=== PATIENT | female | born 1990 | race Hispanic/Latino ===

== ENCOUNTER 2018-05-06 11:55 | Emergency (ER) | payer OTHER ==
[2018-05-06 13:27] LABS: BASOPHILS % (AUTO) 0.4 % (0.0-5.0); EOSINOPHILS % (AUTO) 0.6 % (0.0-8.0); HEMATOCRIT 38.7 % (36-48); LYMPHOCYTES % (AUTO) 13.6 % (21.0-51.0); MEAN CORPUSCULAR HEMOGLOBIN 29.6 pg (27.0-33.0); MEAN CORPUSCULAR HGB CONC 33.2 g/dL (32.0-36.0); MEAN CORPUSCULAR VOLUME 89.2 fL (79-99); MONOCYTES % (AUTO) 4.9 % (3.0-13.0); NEUTROPHILS % (AUTO) 80.5 % (40.0-77.0); PLATELET COUNT (AUTO) 303 K/uL (130-400); RED BLOOD CELL COUNT(AUTO) 4.34 MIL/uL (4.00-5.50); RED CELL DISTRIBUTION WIDTH 13.8 % (11.0-15.5); WHITE BLOOD COUNT (AUTO) 11.7 K/uL (4.8-10.8)
[2018-05-06 13:30] LABS: CREATININE 0.8 mg/dL (0.5-1.5)
[2018-05-06 13:36] LABS: APPEARANCE,URINE Clear (CLEAR); BILIRUBIN,URINE Negative (NEGATIVE); COLOR,URINE Yellow (YELLOW); GLUCOSE, URINE (UA) Negative (NEGATIVE); KETONES,URINE 40 mg/dL (NEGATIVE); LEUKOCYTE ESTERASE ,URINE Negative (NEGATIVE); NITRATE,URINE Negative (NEGATIVE); OCCULT BLOOD,URINE Negative (NEGATIVE); PROTEIN,URINE Negative (NEGATIVE); UROBILINOGEN,URINE 0.2 mg/dL (0.2-1.0)
[2018-05-06 13:38] LABS: HCG,QUAL RESULT NEGATIVE (NEGATIVE)
[2018-05-06 13:42] LABS: BACTERIA,URINE Rare /HPF (None Seen); RBC,URINE None Seen /HPF (0-1); SQUAMOUS EPITHELIAL CELL,UR Rare /HPF (0-2); WBC,URINE 0-1 /HPF (0-1)
[2018-05-06] MEDS ORDERED: ACETAMINOPHEN 325 MG TAB ONE (13:54)
== END 2018-05-06 14:06 | disposition home or self-care (01) ==
LOC: EDH 11:55
DX: D25.9 Leiomyoma of uterus, unspecified (principal); Z88.6 Allergy status to analgesic agent
CPT/HCPCS: 36415; 76856; 80048; 81001; 81025; 85025; 87486; 87797

== ENCOUNTER 2019-06-11 18:16 | Observation (INO) | payer MEDICAID ==
[2019-06-11 19:03] LABS: BILIRUBIN,URINE Negative (NEGATIVE); COLOR,URINE Yellow (YELLOW); GLUCOSE, URINE (UA) Negative (NEGATIVE); KETONES,URINE Trace mg/dL (NEGATIVE); LEUKOCYTE ESTERASE ,URINE Small (NEGATIVE); NITRATE,URINE Negative (NEGATIVE); OCCULT BLOOD,URINE Negative (NEGATIVE); PH,URINE 7.5 (5.0-8.0); PROTEIN,URINE Negative (NEGATIVE); UROBILINOGEN,URINE 0.2 mg/dL (0.2-1.0)
[2019-06-11 19:07] LABS: APPEARANCE,URINE CLOUDY (CLEAR)
[2019-06-11 19:11] LABS: AMPHET/METH SCREEN,URINE NEGATIVE (NEGATIVE); BARBITURATE SCREEN, URINE NEGATIVE (NEGATIVE); BENZODIAZEPINES SCREEN,URINE NEGATIVE (NEGATIVE); CANNABINOID SCREEN,URINE NEGATIVE (NEGATIVE); COCAINE SCREEN,URINE NEGATIVE (NEGATIVE); OPIATE SCREEN,URINE NEGATIVE (NEGATIVE); PHENCYCLIDINE SCREEN,URINE NEGATIVE (NEGATIVE)
[2019-06-11 19:26] LABS: AMORPHOUS SEDIMENT,UR Many /LPF (None Seen); BACTERIA,URINE Few /HPF (None Seen); RBC,URINE None Seen /HPF (0-1)
== END 2019-06-11 20:15 | disposition home or self-care (01) ==
LOC: EDH 18:16 → LDH 18:27
DX: O26.893 Other specified pregnancy related conditions, third trimester (principal); R10.9 Unspecified abdominal pain; M54.9 Dorsalgia, unspecified; Z3A.32 32 weeks gestation of pregnancy
CPT/HCPCS: 80305; 81001; 99284; G0378 ×2

== ENCOUNTER 2020-03-24 15:00 | Emergency (ER) | payer MEDICAID ==
[2020-03-24 15:28] LABS: APPEARANCE,URINE CLEAR (CLEAR); BILIRUBIN,URINE NEGATIVE (NEGATIVE); COLOR,URINE YELLOW (YELLOW); GLUCOSE, URINE (UA) NEGATIVE (NEGATIVE); KETONES,URINE NEGATIVE (NEGATIVE); LEUKOCYTE ESTERASE ,URINE NEGATIVE (NEGATIVE); NITRATE,URINE NEGATIVE (NEGATIVE); OCCULT BLOOD,URINE NEGATIVE (NEGATIVE); PH,URINE 7.5 (5.0-8.0); PROTEIN,URINE NEGATIVE (NEGATIVE); UROBILINOGEN,URINE 0.2 mg/dL (0.2-1.0)
[2020-03-24] MEDS ORDERED: 0.9%NACL 1000ML 1,000 ML IV ONE (15:36)
[2020-03-24] MEDS ORDERED: 0.9%NACL 50ML 50 ML IV ONE (15:36)
[2020-03-24 15:45] LABS: BASOPHILS % (AUTO) 0.5 % (0.0-5.0); EOSINOPHILS % (AUTO) 2.8 % (0.0-8.0); HEMATOCRIT 36.3 % (36-48); LYMPHOCYTES % (AUTO) 25.7 % (21.0-51.0); MEAN CORPUSCULAR HEMOGLOBIN 28.8 pg (27.0-33.0); MEAN CORPUSCULAR HGB CONC 33.6 g/dL (32.0-36.0); MEAN CORPUSCULAR VOLUME 85.8 fL (79-99); MONOCYTES % (AUTO) 8.4 % (3.0-13.0); NEUTROPHILS % (AUTO) 62.4 % (40.0-77.0); PLATELET COUNT (AUTO) 258 K/uL (130-400); RED BLOOD CELL COUNT(AUTO) 4.23 MIL/uL (4.00-5.50); RED CELL DISTRIBUTION WIDTH 14.6 % (11.0-15.5); WHITE BLOOD COUNT (AUTO) 8.7 K/uL (4.8-10.8)
[2020-03-24 15:51] LABS: CREATININE 0.5 mg/dL (0.5-1.5); POTASSIUM 4.2 mmol/L (3.5-5.1)
[2020-03-24 16:21] LABS: BILIRUBIN,TOTAL 0.1 mg/dL (0.2-1.0)
== END 2020-03-24 17:11 | disposition home or self-care (01) ==
LOC: EDH 15:00
DX: O26.892 Other specified pregnancy related conditions, second trimester (principal); G44.209 Tension-type headache, unspecified, not intractable; R11.0 Nausea; Z3A.14 14 weeks gestation of pregnancy
CPT/HCPCS: 36415; 80053; 81003; 84702; 85025; 96365; 99284; J7030

== ENCOUNTER 2020-06-09 17:23 | Observation (INO) | payer MEDICAID ==
[~2020-06-09] VITALS: Ht 157.5 cm; Wt 86.6 kg
[2020-06-09 18:10] LABS: APPEARANCE,URINE SL CLOUDY (CLEAR); BILIRUBIN,URINE NEGATIVE (NEGATIVE); COLOR,URINE YELLOW (YELLOW); GLUCOSE, URINE (UA) NEGATIVE (NEGATIVE); KETONES,URINE NEGATIVE (NEGATIVE); LEUKOCYTE ESTERASE ,URINE NEGATIVE (NEGATIVE); NITRATE,URINE NEGATIVE (NEGATIVE); OCCULT BLOOD,URINE NEGATIVE (NEGATIVE); PROTEIN,URINE NEGATIVE (NEGATIVE); UROBILINOGEN,URINE 0.2 mg/dL (0.2-1.0)
[2020-06-09 18:19] LABS: AMPHET/METH SCREEN,URINE NEGATIVE (NEGATIVE); BARBITURATE SCREEN, URINE NEGATIVE (NEGATIVE); BENZODIAZEPINES SCREEN,URINE NEGATIVE (NEGATIVE); CANNABINOID SCREEN,URINE NEGATIVE (NEGATIVE); COCAINE SCREEN,URINE NEGATIVE (NEGATIVE); OPIATE SCREEN,URINE NEGATIVE (NEGATIVE); PHENCYCLIDINE SCREEN,URINE NEGATIVE (NEGATIVE)
[2020-06-09 18:46] LABS: AMORPHOUS SEDIMENT,UR Few /LPF (None Seen); BACTERIA,URINE Few /HPF (None Seen); RBC,URINE 0-1 /HPF (0-1); SQUAMOUS EPITHELIAL CELL,UR Few /HPF (0-2); WBC,URINE 0-1 /HPF (0-1)
[2020-06-09 18:47] LABS: TRANSITIONAL EPI CELLS,URINE Rare /HPF (None Seen)
[2020-06-09 18:55] LABS: BASOPHILS % (AUTO) 0.3 % (0.0-5.0); EOSINOPHILS % (AUTO) 2.9 % (0.0-8.0); HEMATOCRIT 30.7 % (36-48); LYMPHOCYTES % (AUTO) 20.6 % (21.0-51.0); MEAN CORPUSCULAR HEMOGLOBIN 26.3 pg (27.0-33.0); MEAN CORPUSCULAR HGB CONC 31.6 g/dL (32.0-36.0); MEAN CORPUSCULAR VOLUME 83.2 fL (79-99); MONOCYTES % (AUTO) 8.4 % (3.0-13.0); NEUTROPHILS % (AUTO) 67.1 % (40.0-77.0); PLATELET COUNT (AUTO) 248 K/uL (130-400); RED BLOOD CELL COUNT(AUTO) 3.69 MIL/uL (4.00-5.50); RED CELL DISTRIBUTION WIDTH 13.5 % (11.0-15.5); WHITE BLOOD COUNT (AUTO) 8.9 K/uL (4.8-10.8)
[2020-06-09] MEDS ORDERED: FAMO40TA75 PO (18:58)
[2020-06-09] MEDS ORDERED: PREN1TAB80 PO (18:59)
[2020-06-09] MEDS ORDERED: ACET-66 PO (19:00)
[2020-06-09 19:11] LABS: CREATININE 0.5 mg/dL (0.5-1.5); POTASSIUM 3.9 mmol/L (3.5-5.1)
[2020-06-09 19:15] LABS: ALBUMIN 2.5 g/dL (3.5-5.0); BILIRUBIN,TOTAL 0.1 mg/dL (0.2-1.0); TOTAL PROTEIN, SERUM 6.5 g/dL (6.0-8.3)
[2020-06-09] MEDS ORDERED: FAMOTIDINE 20MG TAB 20 MG TAB PO SCH (19:45)
== END 2020-06-09 21:15 | disposition home or self-care (01) ==
LOC: EDH 17:23 → LDH 17:24
PROVIDERS: ADMIT Obstetrics & Gynecology; ATTEND Obstetrics & Gynecology
DX: O26.892 Other specified pregnancy related conditions, second trimester (principal); R10.13 Epigastric pain; R42 Dizziness and giddiness; O34.219 Maternal care for unspecified type scar from previous cesarean delivery; Z88.6 Allergy status to analgesic agent; Z3A.24 24 weeks gestation of pregnancy
CPT/HCPCS: 36415; 59025; 76705; 80053; 80305; 81001; 83690; 85025; 99284; G0378 ×3

== ENCOUNTER 2020-07-03 21:43 | Emergency (ER) | payer MEDICAID ==
[~2020-07-03 21:43] MED LIST: ACET-66 PO; FAMO40TA75 PO; PREN1TAB80 PO
[2020-07-04] MEDS ORDERED: CETIRIZINE HCL 5 MG TABLET PO ONE (00:09)
[2020-07-04] MEDS ORDERED: CLINDAMYCIN HCL 150 MG CAP ONE (00:09)
== END 2020-07-04 00:18 | disposition home or self-care (01) ==
LOC: EDH 21:43
DX: O99.513 Diseases of the respiratory system complicating pregnancy, third trimester (principal); J30.9 Allergic rhinitis, unspecified; O26.893 Other specified pregnancy related conditions, third trimester; J32.4 Chronic pansinusitis; H66.92 Otitis media, unspecified, left ear; H68.002 Unspecified Eustachian salpingitis, left ear; H81.399 Other peripheral vertigo, unspecified ear; Z3A.30 30 weeks gestation of pregnancy; Z88.6 Allergy status to analgesic agent

== ENCOUNTER 2021-05-30 11:18 | Emergency (ER) | payer MEDICAID ==
[~2021-05-30] VITALS: Ht 157.5 cm; Wt 83.5 kg
[2021-05-30 12:28] LABS: HEMATOCRIT 32.3 % (36-48); MEAN CORPUSCULAR HEMOGLOBIN 25.8 pg (27.0-33.0); MEAN CORPUSCULAR HGB CONC 31.6 g/dL (32.0-36.0); MEAN CORPUSCULAR VOLUME 81.8 fL (79-99); RED BLOOD CELL COUNT(AUTO) 3.95 MIL/uL (4.00-5.50); RED CELL DISTRIBUTION WIDTH 14.8 % (11.0-15.5); WHITE BLOOD COUNT (AUTO) 7.4 K/uL (4.8-10.8)
[2021-05-30] MEDS ORDERED: ONDANSETRON 4MG INJ IVP ONE (12:30)
[2021-05-30] MEDS ORDERED: 0.9%NACL 1000ML 1,000 ML IV SCH (12:30)
[2021-05-30] MEDS ORDERED: MORPHINE 2 MG SYG IVP ONE (12:30)
[2021-05-30 12:40] LABS: APPEARANCE,URINE Clear (CLEAR); BILIRUBIN,URINE Negative (NEGATIVE); COLOR,URINE Yellow (YELLOW); GLUCOSE, URINE (UA) Negative (NEGATIVE); KETONES,URINE Negative (NEGATIVE); LEUKOCYTE ESTERASE ,URINE Negative (NEGATIVE); NITRATE,URINE Negative (NEGATIVE); OCCULT BLOOD,URINE Trace (NEGATIVE); PH,URINE 5.5 (5.0-8.0); PROTEIN,URINE Negative (NEGATIVE); UROBILINOGEN,URINE 0.2 mg/dL (0.2-1.0)
[2021-05-30 12:42] LABS: CREATININE 0.6 mg/dL (0.5-1.5)
[2021-05-30 12:48] LABS: ALBUMIN 3.4 g/dL (3.5-5.0); BILIRUBIN,TOTAL 0.4 mg/dL (0.2-1.0)
[2021-05-30 13:01] LABS: BACTERIA,URINE Rare /HPF (None Seen); RBC,URINE 0-1 /HPF (0-1); SQUAMOUS EPITHELIAL CELL,UR Rare /HPF (0-2); WBC,URINE 0-1 /HPF (0-1)
[2021-05-30] MEDS ORDERED: IOHEXOL-350 75 ML VIAL IV ONE (13:03)
[2021-05-30] MEDS ORDERED: IOHEXOL-350 50ML VIAL IV ONE (13:03)
[2021-05-30] MEDS ORDERED: ACET-2247 PO (14:32)
[2021-05-30] MEDS ORDERED: CYCL10TA16 PO (14:32)
[2021-05-30 14:47] VITALS: BP 131/76
== END 2021-05-30 15:17 | disposition home or self-care (01) ==
LOC: EDH 11:18
DX: J98.11 Atelectasis (principal); E86.0 Dehydration; D18.00 Hemangioma unspecified site; E66.9 Obesity, unspecified; Z88.6 Allergy status to analgesic agent; Z98.82 Breast implant status; Z68.33 Body mass index [BMI] 33.0-33.9, adult
CPT/HCPCS: 36415; 71275; 74177; 80053; 81001; 83605; 84484; 84703; 85027; 87040 ×2; 93005; 96361; 96374; 96375; 99285; J2405; J3490; J7030; Q9967

== ENCOUNTER 2022-04-03 03:13 | Emergency (ER) | payer MEDICAID ==
[~2022-04-03] VITALS: Ht 157.5 cm; Wt 77.6 kg
[~2022-04-03 03:13] MED LIST changes: +ACET-2247 PO; +CYCL10TA16 PO
[2022-04-03] MEDS ORDERED: DiphenhydrAMINE HCL 50 MG/ML VIAL IV ONE (03:30)
[2022-04-03] MEDS ORDERED: DEXAMETHASONE SOD PHOSPHATE 10MG/ML 1ML VIAL ONE (03:30)
[2022-04-03] MEDS ORDERED: FAMOTIDINE 20MG VIAL IV ONE (03:30)
[2022-04-03] MEDS ORDERED: DIPH50 PO (03:35)
[2022-04-03] MEDS ORDERED: PRED20TA3 PO (03:35)
[2022-04-03] MEDS ORDERED: FAMO-136 PO (03:35)
[2022-04-03] MEDS ORDERED: DiphenhydrAMINE HCL 50 MG/ML VIAL IM ONE (04:00)
[2022-04-03] MEDS ORDERED: DEXAMETHASONE SOD PHOSPHATE 4 MG/ML 1ML VIAL IM ONE (04:00)
[2022-04-03 04:11] VITALS: BP 132/87
== END 2022-04-03 04:17 | disposition home or self-care (01) ==
LOC: EDH 03:13
DX: T78.49XA Other allergy, initial encounter (principal); T39.1X5A Adverse effect of 4-Aminophenol derivatives, initial encounter; E66.9 Obesity, unspecified; Z68.31 Body mass index [BMI] 31.0-31.9, adult; Z88.6 Allergy status to analgesic agent; Z79.52 Long term (current) use of systemic steroids; X58.XXXA Exposure to other specified factors, initial encounter; Y92.89 Other specified places as the place of occurrence of the external cause
CPT/HCPCS: 99284; 96372 ×2; J1200; J1100; S0028; J3490

== ENCOUNTER 2022-06-15 16:21 | Emergency (ER) | payer MEDICAID ==
[~2022-06-15] VITALS: Ht 157.5 cm; Wt 78.9 kg
[~2022-06-15 16:21] MED LIST changes: +DIPH50 PO; +FAMO-136 PO; +PRED20TA3 PO
[2022-06-15 17:14] LABS: BASOPHILS % (AUTO) 0.5 % (0.0-5.0); EOSINOPHILS % (AUTO) 4.3 % (0.0-8.0); HEMATOCRIT 37.7 % (36-48); LYMPHOCYTES % (AUTO) 35.9 % (21.0-51.0); MEAN CORPUSCULAR HEMOGLOBIN 26.7 pg (27.0-33.0); MEAN CORPUSCULAR HGB CONC 31.8 g/dL (32.0-36.0); MONOCYTES % (AUTO) 6.2 % (3.0-13.0); NEUTROPHILS % (AUTO) 52.9 % (40.0-77.0); PLATELET COUNT (AUTO) 330 K/uL (130-400); RED BLOOD CELL COUNT(AUTO) 4.49 MIL/uL (4.00-5.50); WHITE BLOOD COUNT (AUTO) 8.4 K/uL (4.8-10.8)
[2022-06-15 17:27] LABS: CREATININE 0.6 mg/dL (0.5-1.5); POTASSIUM 4.1 mmol/L (3.5-5.1)
[2022-06-15 17:36] LABS: ALBUMIN 3.9 g/dL (3.5-5.0); TOTAL PROTEIN, SERUM 7.6 g/dL (6.0-8.3)
[2022-06-15] MEDS ORDERED: MECLIZINE HCL 25 MG TABLET PO ONE (19:30)
[2022-06-15] MEDS ORDERED: MECL-160 PO (21:54)
[2022-06-15 22:11] VITALS: BP 131/86
== END 2022-06-15 22:18 | disposition home or self-care (01) ==
LOC: EDH 16:21
DX: S80.01XA Contusion of right knee, initial encounter (principal); R42 Dizziness and giddiness; E66.9 Obesity, unspecified; Z79.52 Long term (current) use of systemic steroids; Z88.6 Allergy status to analgesic agent; Z68.31 Body mass index [BMI] 31.0-31.9, adult; W19.XXXA Unspecified fall, initial encounter; Y93.89 Activity, other specified; Y92.89 Other specified places as the place of occurrence of the external cause; Y99.8 Other external cause status
CPT/HCPCS: 36415; 70450; 73562; 80053; 84484; 85025; 93005